=== PATIENT | male | born 1975 | race Caucasian/White ===

== ENCOUNTER 2017-03-18 16:02 | Emergency (ER) | payer BC ==
[~2017-03-18] VITALS: Ht 188 cm; Wt 90.5 kg
[2017-03-18 16:03] VITALS: BP 154/89; PULSE 98; RESP 20; TEMP 98.8; O2SAT 98
[2017-03-18] MEDS ORDERED: KETOROLAC TROMETHAMINE 30 MG/ML (IVP) VIAL IVP ONE (16:30)
[2017-03-18] MEDS ORDERED: CLINDAMYCIN 600 MG/NS PREMIX 50 ML IV ONE (16:30)
[2017-03-18] MEDS ORDERED: CLINDAMYCIN INJ 600 MG in SODIUM CHLORIDE 0.9% INJ 100 ML IV ONE (16:30)
[2017-03-18] MEDS ORDERED: SODIUM CHLORIDE 0.9% FLUSH 10 ML FLUSH IVF PRN (16:30)
--- NOTE | 2017-03-18 16:30 | PD ---
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 He feels he may have been bitten by something last night. Patient states he had no trouble when he went to bed at 1 AM last evening. When he woke up this morning, was painful, erythematous, and warm. Patient states he felt chills at that time but no specific fever with checked. Patient took some Benadryl continues allergic reaction without any improvement. Patient states his tetanus is 3 years old. Pain in the elbow is currently about 7 out of 10. He has no other complaints. No known drug allergies. PFSH Past Medical History Medical History: Denies Significant Hx Past Surgical History Other Surgery: Yes (aortic dissection) Social History Alcohol Use: Yes Tobacco Use: No Substance Use: No Allergies-Medications (Allergen,Severity, Reaction): Coded Allergies: No Known Allergies (Unverified , 03/18/17) Reported Meds & Prescriptions Reported Meds & Active Scripts Active Ibuprofen 800 Mg Tab 800 Mg PO Q8H PRN Clindamycin (Clindamycin HCl) 150 Mg Cap 300 Mg PO Q8HR 7 Days Review of Systems Except as stated in HPI: all other systems reviewed are Neg General / Constitutional: Positive: Chills, No: Fever Eyes: No: Visual changes HENT: No: Headaches Cardiovascular: No: Chest Pain or Discomfort Respiratory: No: Shortness of Breath Gastrointestinal: No: Abdominal Pain Genitourinary: No: Dysuria Musculoskeletal: Positive: Arthralgias, Limited ROM (see history present illness), Pain (see history present illness) Skin: Positive Lesions, No Rash Neurologic: No: Weakness Psychiatric: No: Depression Endocrine: No: Polydipsia Hematologic/Lymphatic: No: Easy Bruising Physical Exam Narrative GENERAL: Patient appears in no obvious distress. SKIN: Warm and dry. Normal color. Normal turgor. Patient has 6 cm oblong erythematous somewhat swollen warm area to the posterior right elbow/olecranon region. No obvious extension into the joint is appreciated. No drainable abscesses noted. HEAD: Atraumatic. Normocephalic. EYES: Pupils equal and round. No scleral icterus. No injection or drainage. ENT: No nasal bleeding or discharge. Mucous membranes pink and moist. Pharynx is clear. Airway is patent. NECK: Trachea midline. Supple and nontender. CARDIOVASCULAR: Regular rate and rhythm. RESPIRATORY: No accessory muscle use. Clear to auscultation. Breath sounds equal bilaterally. GASTROINTESTINAL: Abdomen soft, non-tender, nondistended. Hepatic and splenic margins not palpable. MUSCULOSKELETAL: Extremities without clubbing, cyanosis, or edema. No obvious deformities. NEUROLOGICAL: Awake and alert. No obvious cranial nerve deficits. Motor grossly within normal limits. Five out of 5 muscle strength in the arms and legs. Normal speech. PSYCHIATRIC: Appropriate mood and affect; insight and judgment normal. Data Data Last Documented VS Vital Signs Date Time Temp Pulse Resp B/P (MAP) Pulse Ox O2 Delivery O2 Flow Rate FiO2 03/18/17 16:03 98.8 98 20 154/89 (110) 98 Room Air Orders Orders Basic Metabolic Panel (Bmp) (03/18/17 16:21) Complete Blood Count With Diff (03/18/17 16:21) Iv Access Insert/Monitor (03/18/17 16:21) Ketorolac Inj (Toradol Inj) (03/18/17 16:30) Sodium Chloride 0.9% Flush (Ns Flush) (03/18/17 16:30) Clindamycin Inj (Cleocin Inj) (03/18/17 16:30) Clindamycin 600 Mg/Ns Premix (Cleocin 60 (03/18/17 16:30) Labs Laboratory Tests Test 03/18/17 16:30 White Blood Count 10.3 TH/MM3 Red Blood Count 4.79 MIL/MM3 Hemoglobin 14.8 GM/DL Hematocrit 42.2 % Mean Corpuscular Volume 88.1 FL Mean Corpuscular Hemoglobin 30.8 PG Mean Corpuscular Hemoglobin Concent 35.0 % Red Cell Distribution Width 13.7 % Platelet Count 250 TH/MM3 Mean Platelet Volume 7.7 FL Neutrophils (%) (Auto) 79.2 % Lymphocytes (%) (Auto) 12.7 % Monocytes (%) (Auto) 7.1 % Eosinophils (%) (Auto) 0.4 % Basophils (%) (Auto) 0.6 % Neutrophils # (Auto) 8.1 TH/MM3 Lymphocytes # (Auto) 1.3 TH/MM3 Monocytes # (Auto) 0.7 TH/MM3 Eosinophils # (Auto) 0.0 TH/MM3 Basophils # (Auto) 0.1 TH/MM3 CBC Comment DIFF FINAL Differential Comment Blood Urea Nitrogen 11 MG/DL Creatinine 1.11 MG/DL Random Glucose 196 MG/DL Calcium Level 9.3 MG/DL Sodium Level 136 MEQ/L Potassium Level 3.6 MEQ/L Chloride Level 100 MEQ/L Carbon Dioxide Level 28.0 MEQ/L Anion Gap 8 MEQ/L Estimat Glomerular Filtration Rate 73 ML/MIN MDM Medical Decision Making Medical Screen Exam Complete: Yes Emergency Medical Condition: Yes Differential Diagnosis Insect bite. Cellulitis. Early abscess. MRSA. Narrative Course Patient is medically stable at time of exam. CBC and BMP is ordered. CBC is unremarkable without significant leukocytosis. CMP is only remarkable for elevated blood sugar of 196. IV access is obtained patient is given 600 mg clindamycin IV as well as 30 mg Toradol IV. Patient will be continued on ibuprofen 800 mg 3 times daily with food #30. Patient also continued on clindamycin 300 mg 3 times a day 7 days. Patient is to limit use of the right arm until better. Patient follow up if symptoms do not improve or worsen as needed. Diagnosis Primary Impression: Insect bite of elbow, right, infected Qualified Codes: S50.361A - Insect bite (nonvenomous) of right elbow, initial encounter; L08.9 - Local infection of the skin and subcutaneous tissue, unspecified; W57.XXXA - Bitten or stung by nonvenomous insect and other nonvenomous arthropods, initial encounter Referrals: Primary Care Physician Patient Instructions: Cellulitis (ED), General Instructions, Insect Bite or Sting (ED) Additional Instructions: Patient will be continued on ibuprofen 800 mg 3 times daily with food #30. Patient also continued on clindamycin 300 mg 3 times a day 7 days. Patient is to limit use of the right arm until better. Patient follow up if symptoms do not improve or worsen as needed. Med/Other Pt SpecificInfo: Prescription(s) given Scripts Ibuprofen (Ibuprofen) 800 Mg Tab 800 MG PO Q8H Y for Pain/Inflammation, #30 TAB 0 Refills Prov: Mando Coburn MD 03/18/17 Clindamycin (Clindamycin) 150 Mg Cap 300 MG PO Q8HR for Infection for 7 Days, CAP 0 Refills Prov: Mando Coburn MD 03/18/17 Disposition: 01 DISCHARGE HOME Condition: Stable Carlos A Gastelum Mar 18, 2017 16:30
[2017-03-18] MEDS ORDERED: IBUP1TAB7 PO (16:34)
[2017-03-18] MEDS ORDERED: CLIN150C14 PO (16:34)
[2017-03-18 16:43] LABS: AUTOMATED NEUTROPHIL # 8.1 TH/MM3 (1.8-7.7); BASOPHIL # 0.1 TH/MM3 (0-0.2); BASOPHIL % 0.6 % (0.0-2.0); EOSINOPHIL % 0.4 % (0.0-4.0); HEMATOCRIT 42.2 % (39.0-51.0); HEMOGLOBIN 14.8 GM/DL (13.0-17.0); LYMPH % 12.7 % (9.0-44.0); LYMPHOCYTE # 1.3 TH/MM3 (1.0-4.8); MEAN CELL VOLUME 88.1 FL (80.0-100.0); MEAN CORPUSCULAR HEMOGLOBIN 30.8 PG (27.0-34.0); MEAN PLATELET VOLUME 7.7 FL (7.0-11.0); MONO % 7.1 % (0.0-8.0); MONOCYTE # 0.7 TH/MM3 (0-0.9); NEUT % 79.2 % (16.0-70.0); PLATELET COUNT 250 TH/MM3 (150-450); RED BLOOD COUNT 4.79 MIL/MM3 (4.50-5.90); RED CELL DISTRIBUTION WIDTH 13.7 % (11.6-17.2); WHITE BLOOD COUNT 10.3 TH/MM3 (4.0-11.0)
[2017-03-18 17:02] LABS: CALCIUM 9.3 MG/DL (8.5-10.1); CREATININE 1.11 MG/DL (0.60-1.30)
== END 2017-03-18 17:50 | disposition home or self-care (01) ==
LOC: NEPD 16:02
DX: S50.361A Insect bite (nonvenomous) of right elbow, initial encounter (principal); W57.XXXA Bitten or stung by nonvenomous insect and other nonvenomous arthropods, initial encounter
CPT/HCPCS: 80048; 85025; 96374; 96375; 99284; J1885